=== PATIENT | male | born 1960 | race African-American/Black ===

== ENCOUNTER → 2018-01-04 | Outpatient (CLI) | payer BC ==
--- NOTE | 2018-01-04 11:58 | KCIC ---
EXAM: Lumbar spine MRI without contrast. HISTORY: Lower back pain and lower extremity radiculopathy. TECHNIQUE: Multiplanar, multisequence magnetic resonance imaging of the lumbar spine was performed without contrast. COMPARISON: None. FINDINGS: There is mild scoliosis. There is mild retrolisthesis of L5 on S1. There is degenerative endplate remodeling with disc space narrowing, osteophytosis and Schmorl's node formation primarily at L4-L5 and L5-S1. No suspicious osseous lesion is seen. The conus terminates at L1. At L1-L2, there is a mild disc bulge and endplate remodeling. There is mild bilateral facet arthropathy. There is no stenosis. At L2-L3, there is a shallow right paracentral disc protrusion superimposed on a disc bulge and endplate osteophytosis. There is mild bilateral facet arthropathy. There is mild bilateral foraminal stenosis. At L3-L4, there is a diffuse disc bulge and endplate osteophytosis. There is mild bilateral facet arthropathy. There is mild bilateral foraminal stenosis. At L4-L5, there is a broad-based left paracentral to foraminal predominant disc bulge with annular tear and 6 mm inferior extrusion superimposed on a disc bulge and endplate osteophytosis. There is minimal bilateral facet arthropathy. There is mild bilateral foraminal stenosis. There is effacement of the left lateral recess with deviation of the traversing left nerve roots and mild central canal stenosis. At L5-S1, there is a disc bulge and endplate osteophytosis. There is mild bilateral facet arthropathy. There is moderate right greater than left foraminal stenosis. IMPRESSION: 1. Multilevel degenerative change throughout the lumbar spine, described in detail above. This results in mild bilateral foraminal stenosis at L2-L3 and L3-L4, mild bilateral foraminal stenosis and effacement of the left lateral recess with deviation of the traversing left nerve roots and mild central canal stenosis at L4-L5, and moderate right greater than left foraminal stenosis at L5-S1. 2. Mild scoliosis. Electronically signed by: Olya Paredes MD (01/04/2018 11:54 AM) [id number]
== END | disposition home or self-care (01) ==
LOC: KCIC MRI 10:52
PROVIDERS: ATTEND Internal Medicine
DX: M47.896 Other spondylosis, lumbar region (principal); M48.061 Spinal stenosis, lumbar region without neurogenic claudication; M41.9 Scoliosis, unspecified; M54.16 Radiculopathy, lumbar region
CPT/HCPCS: 72148